=== PATIENT | female | born 1930 | race Hispanic/Latino ===

== ENCOUNTER 2018-12-25 22:47 | Emergency (ER) | payer OTHER ==
[2018-12-26 00:45] LABS: Urine Culture Reflex Order NOT NEEDED
[2018-12-26 00:46] LABS: Urine Bacteria <20 /HPF (<20); Urine RBC NONE SEEN /HPF (NONE SEEN)
[2018-12-26 00:46] LABS: Urine Blood TRACE (NEG); Urine Glucose NEGATIVE (NEG); Urine Protein NEGATIVE (NEG); Urine pH 8.5 (5.0-7.0)
--- NOTE | 2018-12-26 01:12 | ER ---
Nurse's Notes [facility] Name: Yolande Fox Age: 88 yrs Sex: Female : 1930 Arrival Date: 12/25/2018 Time: 22:48 Bed 19 Private MD: Gerald Germain Diagnosis: acute dysuria Presentation: 12/25 23:21 Presenting complaint: Patient states: I am peeing a lot especially, I am peeing la1 constantly, pretty much every hour and its a lot of urine, I do not check my BGL at home but I am diabetic. Transition of care: patient was not received from another setting of care. Onset of symptoms was December 25, 2018. Risk Assessment: Do you want to hurt yourself or someone else? Patient reports no desire to harm self or others. Initial Sepsis Screen: Does the patient meet any 2 criteria? No. Patient's initial sepsis screen is negative. Does the patient have a suspected source of infection? No. Patient's initial sepsis screen is negative. Care prior to arrival: None. 23:21 Method Of Arrival: Ambulatory la1 23:21 Acuity: BOO 3 la1 Triage Assessment: 12/26 00:01 General: Appears in no apparent distress. uncomfortable, Behavior is calm, cooperative, cc3 appropriate for age. Pain: Complains of pain in pain on urination. Historical: - Allergies: 12/25 23:21 Codeine; la1 - PMHx: 23:21 Diabetes - NIDDM; Rheumatoid Arthritis; la1 - Immunization history:: Adult Immunizations up to date. - Social history:: Smoking status: Patient/guardian denies using tobacco. - Ebola Screening: : No symptoms or risks identified at this time. - Family history:: not pertinent. - Hospitalizations: : No recent hospitalization is reported. Screenin/08 00:01 Abuse screen: Denies threats or abuse. Denies injuries from another. Nutritional cc3 screening: No deficits noted. Tuberculosis screening: No symptoms or risk factors identified. Fall Risk Ambulatory Aid- None/Bed Rest/Nurse Assist (0 pts). Gait- Normal/Bed Rest/Wheelchair (0 pts) Mental Status- Oriented to own ability (0 pts). Assessment: 00:01 General: Appears in no apparent distress. uncomfortable, Behavior is calm, cooperative, cc3 appropriate for age. Pain: Complains of pain in on urination. Neuro: Level of Consciousness is awake, alert, obeys commands, Oriented to person, place, time, situation, Appropriate for age. Cardiovascular: Denies chest pain, Capillary refill < 3 seconds Patient's skin is warm and dry. Respiratory: Airway is patent Respiratory effort is even, unlabored, Respiratory pattern is regular, symmetrical. GI: Abdomen is round non-distended. : Parent/caregiver report the patient having burning with urination. EENT: No signs and/or symptoms were reported regarding the EENT system. Derm: Skin is intact, is healthy with good turgor, Skin is pink, warm \T\ dry. normal. Musculoskeletal: Circulation, motion, and sensation intact. Range of motion: intact in all extremities. 01:30 Reassessment: Patient appears in no apparent distress at this time. Patient and/or cc3 family updated on plan of care and expected duration. Pain level reassessed. Patient is alert, oriented x 3, equal unlabored respirations, skin warm/dry/pink. Dr. Hunt discharged the patient home with prescription given. No IV cannula in situ. Patient left ER vitally stable and ambulatory with her daughter. No valuables left in the patient's room. Patient denies pain at this time. Vital Signs: 12/25 23:24 BP 163 / 61; Pulse 87; Resp 16; Temp 97.8; Pulse Ox 98% on R/A; Weight 53.98 kg; Height la1 4 ft. 11 in. (149.86 cm); 12/26 00:45 BP 154 / 67; Pulse 88; Resp 17 S; Pulse Ox 99% on R/A; cc3 01:16 BP 155 / 72; Pulse 83; Resp 18 S; Pulse Ox 98% on R/A; cc3 12/25 23:24 Body Mass Index 24.03 (53.98 kg, 149.86 cm) la1 ED Course: 12/25 22:48 Patient arrived in ED. am2 22:48 Gerald Germain MD is Private Physician. am2 23:21 Arm band placed on left wrist. la1 23:22 Triage completed. la1 12/26 00:01 Alicja Zimmerman is Primary Nurse. cc3 00:01 Patient has correct armband on for positive identification. Bed in low position. Call cc3 light in reach. Side rails up X 1. Pulse ox on. NIBP on. 00:08 Nikhil Hunt MD is Attending Physician. :30 No provider procedures requiring assistance completed. Patient did not have IV access cc3 during this emergency room visit. Administered Medications: No medications were administered Outcome: 01:11 Discharge ordered by . :30 Discharged to home ambulatory, with family. cc3 01:30 Condition: stable 01:30 Discharge instructions given to patient, family, Instructed on discharge instructions, follow up and referral plans. medication usage, Demonstrated understanding of instructions, follow-up care, medications, Prescriptions given X 1. 01:35 Patient left the ED. cc3 Signatures: Wei Andersen, RN RN Pearl Lynch William, MD MD wa Cordel, Charlene cc3
--- NOTE | 2018-12-26 01:12 | EDPHYS ---
Physician Documentation [facility] Name: Yolande Fox Age: 88 yrs Sex: Female : 1930 Arrival Date: 12/25/2018 Time: 22:48 Bed 19 Private MD: Gerald Germain ED Physician Nikhil Hunt HPI: 12/26 05:59 This 88 yrs old Female presents to ER via Ambulatory with complaints of Pain wa With Urination. 06:00 This 88 yrs old Female presents to ER via Ambulatory with complaints of Pain wa With Urination. 06:00 The patient presents with urinary symptoms, dysuria, frequency. Onset: The wa symptoms/episode began/occurred 3 day(s) ago. Modifying factors: The symptoms are alleviated by nothing, the symptoms are aggravated by urinating. Associated signs and symptoms: The patient has no apparent associated signs or symptoms. Severity of symptoms: At their worst the symptoms were moderate, in the emergency department the symptoms are unchanged. The patient has experienced similar episodes in the past. The patient has not recently seen a physician. Historical: - Allergies: 12/25 23:21 Codeine; la1 - PMHx: 23:21 Diabetes - NIDDM; Rheumatoid Arthritis; la1 - Immunization history:: Adult Immunizations up to date. - Social history:: Smoking status: Patient/guardian denies using tobacco. - Ebola Screening: : No symptoms or risks identified at this time. - Family history:: not pertinent. - Hospitalizations: : No recent hospitalization is reported. ROS: 12/26 06:00 Positive for urinary frequency, burning with urination. wa Constitutional: Negative for fever, chills, and weight loss, Eyes: Negative for injury, pain, redness, and discharge, ENT: Negative for injury, pain, and discharge, Neck: Negative for injury, pain, and swelling, Cardiovascular: Negative for chest pain, palpitations, and edema, Respiratory: Negative for shortness of breath, cough, wheezing, and pleuritic chest pain, Abdomen/GI: Negative for abdominal pain, nausea, vomiting, diarrhea, and constipation, Back: Negative for injury and pain, MS/Extremity: Negative for injury and deformity, Skin: Negative for injury, rash, and discoloration, Neuro: Negative for headache, weakness, numbness, tingling, and seizure. All other systems are negative. Exam: 06:01 Constitutional: This is a well developed, well nourished patient who is awake, alert, wa and in no acute distress. Head/Face: Normocephalic, atraumatic. Eyes: Pupils equal round and reactive to light, extra-ocular motions intact. Lids and lashes normal. Conjunctiva and sclera are non-icteric and not injected. Cornea within normal limits. Periorbital areas with no swelling, redness, or edema. ENT: Nares patent. No nasal discharge, no septal abnormalities noted. Tympanic membranes are normal and external auditory canals are clear. Oropharynx with no redness, swelling, or masses, exudates, or evidence of obstruction, uvula midline. Mucous membranes moist. Neck: Trachea midline, no thyromegaly or masses palpated, and no cervical lymphadenopathy. Supple, full range of motion without nuchal rigidity, or vertebral point tenderness. No Meningismus. Chest/axilla: Normal chest wall appearance and motion. Nontender with no deformity. No lesions are appreciated. Cardiovascular: Regular rate and rhythm with a normal S1 and S2. No gallops, murmurs, or rubs. Normal PMI, no JVD. No pulse deficits. Respiratory: Lungs have equal breath sounds bilaterally, clear to auscultation and percussion. No rales, rhonchi or wheezes noted. No increased work of breathing, no retractions or nasal flaring. Abdomen/GI: Soft, non-tender, with normal bowel sounds. No distension or tympany. No guarding or rebound. No evidence of tenderness throughout. Back: No spinal tenderness. No costovertebral tenderness. Full range of motion. Skin: Warm, dry with normal turgor. Normal color with no rashes, no lesions, and no evidence of cellulitis. MS/ Extremity: Pulses equal, no cyanosis. Neurovascular intact. Full, normal range of motion. Neuro: Awake and alert, GCS 15, oriented to person, place, time, and situation. Cranial nerves II-XII grossly intact. Motor strength 5/5 in all extremities. Sensory grossly intact. Cerebellar exam normal. Normal gait. Psych: Awake, alert, with orientation to person, place and time. Behavior, mood, and affect are within normal limits. 06:01 : Pelvic Exam: the exam is deferred, pt refused. Vital Signs: 07/07 23:24 BP 163 / 61; Pulse 87; Resp 16; Temp 97.8; Pulse Ox 98% on R/A; Weight 53.98 kg; Height la1 4 ft. 11 in. (149.86 cm); 12/26 00:45 BP 154 / 67; Pulse 88; Resp 17 S; Pulse Ox 99% on R/A; cc3 01:16 BP 155 / 72; Pulse 83; Resp 18 S; Pulse Ox 98% on R/A; cc3 12/25 23:24 Body Mass Index 24.03 (53.98 kg, 149.86 cm) la1 MDM: 00:08 Patient medically screened. ri 06:01 Differential diagnosis: urinary tract infection, vaginosis. ri 06:02 Data reviewed: vital signs, nurses notes. Test interpretation: by ED physician or ri midlevel provider: UA noted nml.. Special discussion: advised setting up for pelvic exam. pt declined. states already aware of bladder prolapse and will f/u with her urology doc. will empirically cover with Keflex pending urological eeval. 12/25 23:20 Order name: Urine Culture [facility] 12/25 23:20 Order name: Urine Microscopic Only; Complete Time: 00:47 [facility] 12/25 23:20 Order name: Urine Dipstick-Ancillary (obtain specimen); Complete Time: 23:59 snw 12/26 00:01 Order name: Urine Dipstick--Ancillary (enter results); Complete Time: 00:47 [facility] 12/26 00:47 Order name: Pelvic Exam Setup; Complete Time: 01:01 ri Administered Medications: No medications were administered Disposition: 12/26/18 01:11 Discharged to Home. Impression: acute dysuria. - Condition is Stable. - Discharge Instructions: Dysuria. - Prescriptions for Keflex 500 mg Oral Capsule - take 1 capsule by ORAL route every 8 hours for 7 days; 21 capsule. - Medication Reconciliation Form, Thank You Letter, Antibiotic Education, Prescription Opioid Use form. - Follow up: Private Physician; When: 1 - 2 days; Reason: Recheck today's complaints. - Problem is an acute exacerbation. - Symptoms have improved. - Notes: follow up with your urologist for evaluation of your prolapsed bladder. take medication as prescribed Signatures: Dispatcher [employer] Farida Livingston, ENVIRONMENTAL LABORATORY TECHNICIAN-C ENVIRONMENTAL LABORATORY TECHNICIAN-Cs[employer] Wei Andersen RN RN la1 Nikhil Hunt MD MD wa Cordel, Charlene cc3 Corrections: (The following items were deleted from the chart) 01:35 01:11 12/26/2018 01:11 Discharged to Home. Impression: acute dysuria. Condition is cc3 Stable. Forms are Medication Reconciliation Form, Thank You Letter, Antibiotic Education, Prescription Opioid Use. Follow up: Private Physician; When: 1 - 2 days; Reason: Recheck today's complaints. Problem is an acute exacerbation. Symptoms have improved. kaitlin
[2018-12-26 01:54] VITALS: BP 163/61; TEMP 97.8; O2SAT 98
== END 2018-12-26 01:35 | disposition home or self-care (01) ==
LOC: ER 22:47
DX: R30.0 Dysuria (principal); E11.9 Type 2 diabetes mellitus without complications; M06.9 Rheumatoid arthritis, unspecified; Z88.5 Allergy status to narcotic agent
CPT/HCPCS: 81003; 81015; 87086; 87088; 99283